=== PATIENT | male | born 2005 | race Caucasian/White ===

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

== ENCOUNTER 2025-02-11 11:19 | Emergency (ER) | payer OTHER, SELFPAY ==
[2025-02-11] VITALS (16 sets, daily range): BP systolic 90–143; BP diastolic 53–76; PULSE 47–93; RESP 10–34; TEMP 36.4; O2SAT 98–100
--- NOTE | 2025-02-11 11:26 | EKG_ITS ---
[address] [id number] [address], [place] [address] Test Date: 2025-02-11 Pat Name: Donald Stapleton Department: Room: Gender: Male [employer] Worker: : 2005 Requested By: Order Number: [id number] Reading MD: Reggie Ellis MD Measurements Intervals [place] Rate: 61 P: 51 [place]: 154 QRS: 67 QRSD: 104 T: 69 QT: 418 QTc: 420 Interpretive Statements Normal sinus rhythm with sinus arrhythmia Electronically Signed On 02-12-2025 9:10:56 PDT by Reggie Ellis MD
[2025-02-11 11:29] LABS: POC Glucose 109 mg/dL (70-99)
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
[2025-02-11 11:39] LABS: Add Manual Diff / Slide Review NO; Basophils Absolute Auto 100 /uL (0-100); Basophils Percent Auto 1.3 % (0-2); Eosinophils Absolute Auto 400 /uL (0-450); Hematocrit 41.1 % (41-53); Hemoglobin 14.4 g/dL (13.5-17.5); Lymphocytes Absolute Auto 2500 /uL (1100-4500); Lymphocytes Percent Auto 32.7 % (25-40); Mean Corpuscular Hemoglobin 30.9 PG (26-34); Mean Corpuscular Volume 88.2 fL (80-100); Monocytes Absolute Auto 900 /uL (0-900); Neutrophils Absolute Auto 3800 /uL (1500-7000); Platelet Count 465 X10^3/uL (150-400); Red Blood Cell Count 4.66 X10^6/uL (4.5-5.9); Red Cell Distribution Width 12.7 % (11.6-14.8); White Blood Cell Count 7.8 X10^3/uL (4.5-11.0)
[2025-02-11 11:50] LABS: Alanine Aminotransferase 27 IU/L (<50); Albumin 4.3 g/dL (3.5-5.0); Albumin Globulin Ratio 1.4 (1.0-2.8); Alkaline Phosphatase 103 U/L (38-126); Aspartate Aminotransferase 40 IU/L (17-59); BUN Creatinine Ratio 21.6 (6-22); Bilirubin Total 0.9 mg/dL (0.2-1.3); Blood Urea Nitrogen 16 mg/dL (9-20); Calcium 9.2 mg/dL (8.4-10.2); Carbon Dioxide 23 mmol/L (22-32); Chloride 102 mmol/L (98-107); Estimated Glomerular Filt Rate > 60 mL/min (>60); Glucose 97 mg/dL (70-99); HEMOLYSIS < 15 (0-50); Lipase 49 U/L (23-300); Potassium 3.6 mmol/L (3.4-5.1); Sodium 134 mmol/L (137-145); Total Protein 7.3 g/dL (6.3-8.2)
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
--- NOTE | 2025-02-11 13:51 | PC.NURSE ---
Pt awake and alert. Trying to urinate. Talking to family.
[2025-02-11] MEDS: NALOXONE 0.4 MG/ML VIAL 0.2 MG IV ×2 (14:04→14:13)
--- NOTE | 2025-02-11 14:17 | PC.NURSE ---
Pt given Narcan X2. No results from administration.
[2025-02-11 14:19] LABS: Ur Creatinine Normal (Normal); Ur Specific Gravity Normal (Normal); Urine Cocaine Positive (Negative); Urine Tetrahydrocannabinol Positive (Negative); Urine pH Normal (Normal)
[2025-02-11 14:20] LABS: UR Morphine/Opiate cutoff 300 Negative (Negative); Urine Amphetamines Positive (Negative); Urine MDMA Positive (Negative); Urine Methamphetamines Positive (Negative); Urine Phencyclidine Negative (Negative)
[2025-02-11 14:21] LABS: Urine Barbiturates Negative (Negative); Urine Benzodiazepines Negative (Negative); Urine Methadone Negative (Negative); Urine Oxycodone Negative (Negative); Urine Tricyclic Antidepressant Negative (Negative)
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
== END 2025-02-11 14:59 | disposition home or self-care (01) ==
PROVIDERS: Emergency Provider Emergency Medicine
DX: S09.90XA Unspecified injury of head, initial encounter (principal); S29.9XXA Unspecified injury of thorax, initial encounter; S19.9XXA Unspecified injury of neck, initial encounter; S39.93XA Unspecified injury of pelvis, initial encounter; V89.2XXA Person injured in unspecified motor-vehicle accident, traffic, initial encounter
CPT/HCPCS: 70450; 71045; 72125; 72170; 80053; 80305; 82962; 83690; 85025; 93005; 93010; 96374; 99284; 99285; J2310